=== PATIENT | female | born 1980 | race Caucasian/White ===

== ENCOUNTER 2016-12-14 06:57 | Emergency (ER) | payer BC ==
[2016-12-14] MEDS ORDERED: MORPHINE SULFATE 4 MG/ML SYRINGE ONE ×3 (07:20→07:35)
[2016-12-14] MEDS ORDERED: ONDANSETRON 4 MG/2ML 2 ML VIAL ONE (07:20)
[2016-12-14 07:38] LABS: SPECIFIC GRAVITY 1.025 (1.001-1.030); URINE BLOOD 4+ (NEGATIVE); URINE GLUCOSE (UA) NEGATIVE (NEGATIVE); URINE LEUKOCYTE ESTERASE NEGATIVE (NEGATIVE)
[2016-12-14 07:39] LABS: BASO # 0.1 K/mm3 (0.0-0.2); BASO % 0.8 % (0.2-1.0); EOS # 0.1 (0.0-0.5); HEMATOCRIT 43.3 % (37.0-47.0); HEMOGLOBIN 14.2 gm/l (12.0-16.0); IMM NEUT # 0.1 K/mm3 (0-0.2); IMM NEUT% 1.1 % (0-1); LYMPH # 2.4 (1.0-4.8); MEAN CELL VOLUME 92.3 fl (81.0-99.0); MEAN CORPUSCULAR HEMOGLOBIN 30.3 pg (27.0-31.0); MEAN CORPUSCULAR HGB CONC 32.8 g/dl (33.0-37.0); MEAN PLATELET VOLUME 10.5 fl (7.4-10.4); MONO # 0.7 (0.0-0.8); MONO % 6.4 % (4-12); NEUT % 69.7 % (43-75); PLATELET COUNT 239 K/mm3 (130-400); RED CELL DISTRIBUTION WIDTH 11.9 % (11.5-14.5)
[2016-12-14 07:44] LABS: URINE APPEARANCE CLOUDY; URINE BILIRUBIN NEGATIVE (NEGATIVE); URINE COLOR ORANGE/RED; URINE NITRITE NEGATIVE (NEGATIVE); URINE PROTEIN NEGATIVE (NEGATIVE); URINE UROBILINOGEN NEGATIVE (0-1 mg/dl)
[2016-12-14 07:45] LABS: URINE BACTERIA FEW; URINE RBC PACKED /hpf; URINE WBC 0-2 /hpf
[2016-12-14] MEDS ORDERED: FENTANYL 100 MCG/2 ML VIAL ONE (07:46)
[2016-12-14] MEDS ORDERED: KETOROLAC TROMETHAMINE 15 MG/ML VIAL ONE (07:46)
[2016-12-14 07:52] LABS: CALCIUM 9.4 mg/dL (8.6-10.3)
== END 2016-12-14 10:18 | disposition home or self-care (01) ==
LOC: ED 06:57
DX: N23 Unspecified renal colic (principal); N20.0 Calculus of kidney; I10 Essential (primary) hypertension; F17.210 Nicotine dependence, cigarettes, uncomplicated
CPT/HCPCS: 85025; 80048; 81001; 96375 ×3; 99283 ×2; 96374; J3010; J2270 ×2; J1885; J2405

== ENCOUNTER 2016-12-15 07:55 | Emergency (ER) | payer BC ==
[2016-12-15] MEDS ORDERED: HYDROMORPHONE HCL 0.5 MG/0.5 ML SYRINGE ONE ×2 (08:48→10:21)
[2016-12-15] MEDS ORDERED: KETOROLAC TROMETHAMINE 30 MG/ML 1 ML VIAL ONE (08:48)
[2016-12-15 09:02] LABS: ABSOLUTE NEUTROPHIL COUNT 6.2 K/mm3 (1.8-7.7); BASO # 0.1 K/mm3 (0.0-0.2); BASO % 0.8 % (0.2-1.0); EOS # 0.1 (0.0-0.5); EOS % 1.5 % (0.9-2.9); HEMATOCRIT 41.2 % (37.0-47.0); HEMOGLOBIN 13.6 gm/l (12.0-16.0); IMM NEUT # 0.2 K/mm3 (0-0.2); IMM NEUT% 1.6 % (0-1); LYMPH # 2.2 (1.0-4.8); LYMPH % 23.3 % (15-45); MEAN CELL VOLUME 92.2 fl (81.0-99.0); MEAN CORPUSCULAR HEMOGLOBIN 30.4 pg (27.0-31.0); MEAN PLATELET VOLUME 10.5 fl (7.4-10.4); MONO # 0.7 (0.0-0.8); MONO % 7.5 % (4-12); NEUT % 65.3 % (43-75); PLATELET COUNT 223 K/mm3 (130-400); RED CELL DISTRIBUTION WIDTH 11.6 % (11.5-14.5)
[2016-12-15 09:25] LABS: ALB/GLOB RATIO 1.6 (>1.0); ALBUMIN 4.1 gm/dL (3.5-5.7); CALCIUM 9.4 mg/dL (8.6-10.3)
--- NOTE | 2016-12-15 09:50 | CT ---
Name: HARSHA SIERRA Exam: Noncontrast renal stone CT Comparison: None Clinical History: Left flank pain. History of calculi. Procedure: Helical CT using multidetector technique was applied to the abdomen and pelvis without contrast. Sagittal, axial and coronal reconstructions were obtained. An automated dose reduction technique was used to minimize patient radiation dose. Findings: CT abdomen (noncontrast): Lung bases are clear. Heart is nonenlarged. There is no pericardial effusion. Noncontrast images of the liver, gallbladder, pancreas, spleen, adrenal glands, aorta, IVC, stomach, small bowel and colon are normal. There are many 3 mm and less, left greater than right, nonobstructing bilateral renal calculi. There is minimal stranding at the left renal pelvis. Periureteral stranding is more prominent. There is no suspicious fluid collection. Significant hydronephrosis is not present. The stranding may be related to recent lithotripsy. Pyelonephritis is not excluded. Regional skeleton is unremarkable. CT pelvis (noncontrast): The bladder is partially filled. Normal size uterus contains a centrally located IUD. Left ovary is normal and right ovary is not identified. Right ureter is normal. There is stranding around the mid and distal left ureter with mild ureterectasis. There is no calculus or localized suspicious fluid collection. Colon, small bowel and appendix are normal. There is no free air, free fluid or suspicious adenopathy. Impression: 1. Left peripelvic and periureteral stranding with mild ureterectasis. Findings may simply be related to recent lithotripsy. Superimposed infection is not excluded. Correlate with patient's urine. There is no current calculus within the ureter and suspicious periureteral fluid collection is not identified 2. Multiple 3 mm and less bilateral nonobstructing intrarenal calculi 3. Nonvisualization of the right ovary 4. Centrally located IUD Note: The above report was uploaded to [facility]'s electronic medical records system at 0944 hours.
[2016-12-15 10:16] LABS: URINE BLOOD 4+ (NEGATIVE); URINE GLUCOSE (UA) NEGATIVE (NEGATIVE); URINE LEUKOCYTE ESTERASE TRACE (NEGATIVE)
[2016-12-15 10:18] LABS: URINE APPEARANCE CLOUDY; URINE BILIRUBIN NEGATIVE (NEGATIVE); URINE COLOR YELLOW/RED; URINE NITRITE NEGATIVE (NEGATIVE); URINE PROTEIN NEGATIVE (NEGATIVE); URINE UROBILINOGEN NEGATIVE (0-1 mg/dl)
[2016-12-15 10:24] LABS: URINE BACTERIA RARE; URINE RBC PACKED /hpf
== END 2016-12-15 12:02 | disposition home or self-care (01) ==
LOC: ED 07:55
DX: R10.9 Unspecified abdominal pain (principal); R31.9 Hematuria, unspecified; I10 Essential (primary) hypertension; F17.210 Nicotine dependence, cigarettes, uncomplicated; Z87.442 Personal history of urinary calculi
CPT/HCPCS: 85025; 80053; 81001; 74176; 96375; 96376; 99284 ×2; 96374; J1885; J1170 ×2